=== PATIENT | male | born 2000 | race Caucasian/White ===

== ENCOUNTER 2020-12-08 16:02 | Emergency (ER) | payer BC ==
[~2020-12-08] VITALS: Ht 177.8 cm; Wt 83.9 kg
[2020-12-08] MEDS ORDERED: FLUOXETINE HCL20 MG PO (16:18)
--- NOTE | 2020-12-09 06:53 | EKG ---
[facility] [address] [place] [address] Signed Sinus bradycardia Nonspecific T wave abnormality Abnormal ECG No previous ECGs available Confirmed by DANIEL BUTCHER MD [id number] on 12/09/2020 6:52:56 AM Electronically Signed By: DANIEL BUTCHER MD 12/09/20 0653 PATIENT NAME: BLANCA HODGSON Electrocardiogram DATE OF : [birth year] PHYSICIAN: DANIEL BUTCHER MD REPORT #: [id number] REPORT IS CONFIDENTIAL AND NOT TO BE RELEASED WITHOUT AUTHORIZATION
== END 2020-12-09 01:45 | disposition home or self-care (01) ==
LOC: ED 16:02
DX: R45.851 Suicidal ideations (principal); F17.200 Nicotine dependence, unspecified, uncomplicated; Z79.899 Other long term (current) drug therapy; Z20.822 Contact with and (suspected) exposure to COVID-19
CPT/HCPCS: 80053; 81001; 84443; 85025; 93005; 93010; 99285-25; G0480; U0003

== ENCOUNTER 2024-08-31 22:15 | Emergency (ER) | payer SELFPAY ==
[~2024-08-31] VITALS: Ht 177.8 cm; Wt 59.1 kg
[~2024-08-31 22:15] MED LIST: FLUOXETINE HCL20 MG PO
[2024-08-31] MEDS ORDERED: MORPHINE SULFATE 10 MG/ML VIAL IM ONE (22:30)
[2024-08-31] MEDS ORDERED: MORPHINE SULFATE 4 MG/ML VIAL IV ONE (23:45)
[2024-08-31] MEDS ORDERED: ondansetron HCL 4 MG/2 ML VIAL IV ONE (23:45)
[2024-08-31 23:47] LABS: BASOPHILS 0.5 % (0-2); EOSINOPHILS 0.3 % (0-6); HEMATOCRIT 42.1 % (35.0-50.0); HEMOGLOBIN 14.6 g/dL (12.0-18.0); LYMPHOCYTES 15.6 % (24-44); MCH 29.6 (27-36); MCHC 34.8 g/dl (30-36); MONOCYTES 5.7 % (0-12); NEUTROPHILS 77.9 % (39-80); PLATELET COUNT 273 K/uL (140-440); RBC 4.95 M/ul (4.3-5.7); RDW 13.2 (10.5-15.0)
[2024-09-01 00:07] LABS: ALBUMIN/GLOBULIN RATIO 1.72 (1.1-2.4); ANION GAP 14.1 (7-21); BILIRUBIN, TOTAL 0.8 mg/dL (0.2-1.0); BUN/CREATININE RATIO 10.67 (6.0-28.6); CALCIUM 9.5 mg/dL (8.5-10.1); CREATININE, SERUM 1.03 mg/dL (0.70-1.30); POTASSIUM 3.1 mmol/L (3.5-5.1); PROTEIN, TOTAL 7.9 g/dL (6.4-8.2)
[2024-09-01] MEDS ORDERED: ondansetron HCL 4 MG/2 ML VIAL IV PRN (01:15)
[2024-09-01] MEDS ORDERED: HYDROmorphone HCL 1 MG/ML SYR IV PRN (01:15)
[2024-09-01] MEDS ORDERED: DEXTROSE 5% - LACTATED RINGERS 1,000 ML IV SCH (01:15)
[2024-09-01] MEDS ORDERED: diazePAM 10 MG/2 ML SYR IV ONE (01:15)
[2024-09-01 07:25] VITALS: BP 114/67
== END 2024-09-01 07:25 | disposition short-term general hospital (02) ==
LOC: ED 22:15
PROVIDERS: Family Medicine
DX: S72.041A Displaced fracture of base of neck of right femur, initial encounter for closed fracture (principal); V00.131A Fall from skateboard, initial encounter; Y93.51 Activity, roller skating (inline) and skateboarding; F17.200 Nicotine dependence, unspecified, uncomplicated
CPT/HCPCS: 36415; 73502; 80053; 85025; 96361; 96374; 96375; 96376; 99285-25; J1171; J2270; J2405; J3360; J7121